=== PATIENT | male | born 1995 | race Caucasian/White ===

== ENCOUNTER 2018-11-28 17:29 | Emergency (ER) | payer MEDICAID ==
--- NOTE | 2018-11-28 18:27 | EDM.PDOC ---
ED HPI GENERAL MEDICAL PROBLEM - General Chief Complaint: Wound Recheck Stated Complaint: MEDICAL Time Seen by Provider: 11/28/18 18:15 Source of Information: Reports: Patient, Family History Limitations: Reports: No Limitations - History of Present Illness INITIAL COMMENTS - FREE TEXT/NARRATIVE: 23-year-old male is in for a wound recheck on his right inner thigh. Yesterday he had an incision and drainage of a fairly significant abscess and was to change the packing tonight while showering. When he was in the shower and the packing was removed, the wound started bleeding fairly briskly and it scared him so he came in to be checked. It stopped in route. Onset: Sudden Associated Symptoms: Reports: No Other Symptoms - Related Data Allergies Allergy/AdvReac Type Severity Reaction Status Date / Time No Known Allergies Allergy Verified 11/28/18 17:56 Home Meds: Home Meds Sulfamethoxazole/Trimethoprim [Bactrim Ds Tablet] 11/28/18 [History] Past Medical History Endocrine/Metabolic History: Reports: Other (See Below) Other Endocrine/Metabolic History: pylonidal cyst removal - Past Surgical History GI Surgical History: Reports: Appendectomy Social & Family History - Tobacco Use Smoking Status *Q: Current Every Day Smoker Years of Tobacco use: 7 Packs/Tins Daily: 0.5 ED ROS GENERAL - Review of Systems Review Of Systems: See Below Constitutional: Denies: Fever, Chills GI/Abdominal: Denies: Abdominal Pain Skin: Reports: Other (open wound on the inner right thigh from recent surgery) Neurological: Reports: No Symptoms ED EXAM, SKIN/RASH Exam: See Below Exam Limited By: No Limitations General Appearance: Alert, No Apparent Distress Respiratory/Chest: No Respiratory Distress Extremities: Other (exam is otherwise limited to the right inner thigh where there is a 2 x 3 cm open wound, it appears clean, there is no active bleeding or exudate or surrounding erythema. It is tender.) Course - Vital Signs Last Recorded V/S: Last Vital Signs Temp 97.3 F 11/28/18 18:02 Pulse 92 11/28/18 18:02 Resp 16 11/28/18 18:02 BP 120/77 11/28/18 18:02 Pulse Ox 98 11/28/18 18:02 - Re-Assessments/Exams Free Text/Narrative Re-Assessment/Exam: 11/28/18 18:24 Reassured the patient that he likely had some seromatous material expelled and the wound looks good. We offered to repack the wound but he has the material at home and wanted to take care of this himself. Departure - Departure Time of Disposition: 18:34 Disposition: Home, Self-Care 01 Condition: Good Clinical Impression: Postoperative seroma Qualifiers: Surgical complication system/body Area: skin Procedure type: non-dermatologic Qualified Code(s): L76.34 - Postprocedural seroma of skin and subcutaneous tissue following other procedure - Discharge Information Instructions: How to Change Your Dressing, [id number] Referrals: Rick Garcia MD [Primary Care Provider] - Forms: ED Department Discharge Care Plan Goals: continue wound care as directed by her surgeon, and return anytime if you develop problems or concerns.
== END 2018-11-28 18:34 | disposition home or self-care (01) ==
LOC: JP.ED 17:29
DX: L76.34 Postprocedural seroma of skin and subcutaneous tissue following other procedure (principal); F17.210 Nicotine dependence, cigarettes, uncomplicated
CPT/HCPCS: 99283